=== PATIENT | male | born 1945 | race Caucasian/White ===

== ENCOUNTER 2019-03-31 05:00 | Emergency (ER) | payer MEDICARE, BC ==
[2019-03-31] MEDS ORDERED: Acetaminophen/HYDROcodone 325-10 MG Tab PO ONE ×2 (05:22→14:22)
[2019-03-31 06:37] LABS: ANION GAP 15.5 mmol/L (10-20)
[2019-03-31] MEDS ORDERED: Sodium Chloride 0.9% 10 ML Syringe FLUSH PRN (07:06)
--- NOTE | 2019-03-31 07:18 | EDM.PDOC ---
<AndradeTeo rucker W - Last Filed: 03/31/19 07:29> ED HPI GENERAL MEDICAL PROBLEM - General Chief Complaint: Lower Extremity Injury/Pain Stated Complaint: Right hip pain Time Seen by Provider: 03/31/19 05:15 Source of Information: Reports: Patient History Limitations: Reports: No Limitations - History of Present Illness INITIAL COMMENTS - FREE TEXT/NARRATIVE: Pt. presents to ER with complaints of R hip pain. He states that he has been experiencing this for several weeks. He states that the pain is worse with weight bearing and movement. Denies any significant trauma to the area. He states that he has had "the flu" for the past several days which has included cough and diarrhea. States that he vomited a couple times as well. States that he has been chilled intermittently in the past week. He complains of mild shortness of breath. Denies any chest pain today. No headache. States that he has a couple a dark stools as well. He states that he developed an area of ecchymosis to his R lateral abdomen/hip several days ago. Denies any significant trauma to the area/falls. He states that he is not due for an INR check until next month. Onset: Today Onset Date: 03/31/19 Location: Reports: Abdomen, Lower Extremity, Right Quality: Reports: Throbbing Severity: Moderate Improves with: Reports: Rest Worsens with: Reports: Movement Right hip Pain Score (Numeric/FACES): 2 - Related Data Allergies Allergy/AdvReac Type Severity Reaction Status Date / Time No Known Allergies Allergy Verified 03/31/19 05:25 Home Meds: Home Meds Digoxin 250 mg PO ASDIRECTED 03/31/19 [History] Metoprolol Succinate [Toprol XL 50mg] 50 mg PO DAILY 03/31/19 [History] Warfarin Sodium [Jantoven] 7.5 mg PO DAILY 03/31/19 [History] dilTIAZem HCl [Diltiazem ER] 300 mg PO DAILY 03/31/19 [History] Past Medical History Cardiovascular History: Reports: Afib, Hypertension Review of Systems - Review of Systems Review Of Systems: See Below Constitutional: Reports: Chills. Denies: Diaphoresis Eyes: Reports: No Symptoms Ears: Reports: No Symptoms Nose: Reports: No Symptoms Mouth/Throat: Reports: No Symptoms Respiratory: Reports: Shortness of Breath Cardiovascular: Reports: No Symptoms GI/Abdominal: Reports: Other (See HPI) Genitourinary: Reports: No Symptoms Musculoskeletal: Reports: Joint Pain (R hip pain) Skin: Reports: No Symptoms Neurological: Reports: No Symptoms. Denies: Confusion, Dizziness Psychiatric: Reports: No Symptoms ED EXAM, GENERAL - Physical Exam Exam: See Below Exam Limited By: No Limitations General Appearance: Alert, WD/WN, No Apparent Distress Eye Exam: Bilateral Eye: EOMI, PERRL Throat/Mouth: Normal Inspection, Normal Lips, Normal Teeth, Normal Gums, Normal Oropharynx, Normal Voice, No Airway Compromise Head: Atraumatic, Normocephalic Neck: Normal Inspection, Supple, Non-Tender, Full Range of Motion Respiratory/Chest: No Respiratory Distress, Lungs Clear, Normal Breath Sounds, No Accessory Muscle Use, Chest Non-Tender Cardiovascular: Normal Peripheral Pulses, No Edema, No JVD, Irregularly Irregular Peripheral Pulses: 3+: Radial (L) GI/Abdominal: Normal Bowel Sounds, Soft, Non-Tender, No Organomegaly, Other ( ecchymosis noted to R lateral abdomen. ) (Male) Exam: Deferred Rectal (Males) Exam: Deferred Back Exam: Normal Inspection, Full Range of Motion Extremities: Normal Inspection, Other (R hip pain) Neurological: Alert, Oriented, CN II-XII Intact, Normal Cognition, No Motor/ Sensory Deficits Psychiatric: Normal Affect, Normal Mood Skin Exam: Warm, Dry, No Rash, Pallor Lymphatic: No Adenopathy Course - Vital Signs Last Recorded V/S: Last Vital Signs Temp 36.7 C 03/31/19 08:20 Pulse 88 03/31/19 08:20 Resp 20 03/31/19 08:20 BP 113/61 03/31/19 08:20 Pulse Ox 94 L 03/31/19 08:20 - Orders/Labs/Meds Orders: Active Orders 24 hr Category Date Time Status Fecal Occult Bld Diag Imm [RC] ASDIRECTED Care 03/31/19 07:09 Active CULTURE BLOOD [BC] Stat Lab 03/31/19 07:35 Received CULTURE BLOOD [BC] Stat Lab 03/31/19 07:43 Received UA W/MICROSCOPIC [URIN] Stat Lab 03/31/19 07:07 Ordered Sodium Chloride 0.9% [Saline Flush] Med 03/31/19 07:06 Active 10 ml FLUSH ASDIRECTED PRN Blood Culture x2 Reflex Set [OM.PC] Stat Oth 03/31/19 07:26 Ordered Peripheral IV Insertion Adult [OM.PC] Routine Ot 03/31/19 07:07 Ordered Medication Orders Sodium Chloride (Saline Flush) 10 ml FLUSH ASDIRECTED PRN PRN Reason: Keep Vein Open Labs: Laboratory Tests 03/31/19 03/31/19 03/31/19 Range/Units 05:50 05:50 05:50 WBC (4.0-10.0) x10^3/uL RBC (4.5-6.0) x10^6/uL Hgb (14.0-18.0) g/dL Hct (40.0-52.0) % MCV (78.0-93.0) fL MCH (26.0-32.0) pg MCHC (32.0-36.0) g/dL RDW Coeff of Kimi (10.0-15.0) % Plt Count (130-400) x10^3/uL Add Manual Diff Neutrophils % (Manual) (50-80) % Band Neutrophils % (0-6) % Lymphocytes % (Manual) (25-50) % Monocytes % (Manual) (2-11) % Eosinophils % (Manual) (0-4) % Basophils % (Manual) (0-1) % Metamyelocytes % (0) % Blast Cells % (0) % Platelet Estimate Hypochromasia PT (10.0-12.8) SEC INR (2.0-3.5) Sodium (136-145) mmol/L Potassium (3.5-5.1) mmol/L Chloride (98-107) mmol/L Carbon Dioxide (21-32) mmol/L Anion Gap (10-20) mmol/L BUN (7-18) mg/dL Creatinine (0.70-1.30) mg/dL Est Cr Clr Drug Dosing mL/min Estimated GFR (MDRD) Glucose (74-106) mg/dL Lactic Acid 1.5 (0.4-2.0) mmol/L Calcium (8.5-10.1) mg/dL Corrected Calcium (8.5-10.1) mg/dL Phosphorus 3.2 (2.6-4.7) mg/dL Magnesium 2.1 (1.8-2.4) mg/dL Total Bilirubin (0.2-1.0) mg/dL AST (15-37) U/L ALT (16-63) U/L Alkaline Phosphatase (46-116) U/L Troponin I < 0.017 (<=0.056) ng/mL C-Reactive Protein 17.4 H (<=0.9) mg/dL NT-Pro-B Natriuret Pep 2963 H (<=125) pg/mL Total Protein (6.4-8.2) g/dL Albumin (3.4-5.0) g/dL Globulin Albumin/Globulin Ratio Digoxin 0.87 L (0.90-2.00) ng/mL 03/31/19 03/31/19 03/31/19 Range/Units 05:54 05:54 05:54 WBC 16.7 H (4.0-10.0) x10^3/uL RBC 2.95 L (4.5-6.0) x10^6/uL Hgb 8.7 L (14.0-18.0) g/dL Hct 28.0 L (40.0-52.0) % MCV 94.9 H (78.0-93.0) fL MCH 29.5 (26.0-32.0) pg MCHC 31.1 L (32.0-36.0) g/dL RDW Coeff of Kimi 15.3 H (10.0-15.0) % Plt Count 503 H (130-400) x10^3/uL Add Manual Diff Yes Neutrophils % (Manual) 82 H (50-80) % Band Neutrophils % 1 (0-6) % Lymphocytes % (Manual) 8 L (25-50) % Monocytes % (Manual) 2 (2-11) % Eosinophils % (Manual) 3 (0-4) % Basophils % (Manual) 1 (0-1) % Metamyelocytes % 2 H (0) % Blast Cells % 1 H (0) % Platelet Estimate Marked inc H Hypochromasia 2+ moderate H PT 43.9 H (10.0-12.8) SEC INR 3.9 H (2.0-3.5) Sodium 139 (136-145) mmol/L Potassium 4.5 (3.5-5.1) mmol/L Chloride 103 (98-107) mmol/L Carbon Dioxide 25 (21-32) mmol/L Anion Gap 15.5 (10-20) mmol/L BUN 41 H (7-18) mg/dL Creatinine 2.3 H (0.70-1.30) mg/dL Est Cr Clr Drug Dosing 30.93 mL/min Estimated GFR (MDRD) 28 Glucose 174 H (74-106) mg/dL Lactic Acid (0.4-2.0) mmol/L Calcium 8.1 L (8.5-10.1) mg/dL Corrected Calcium 9.38 (8.5-10.1) mg/dL Phosphorus (2.6-4.7) mg/dL Magnesium (1.8-2.4) mg/dL Total Bilirubin 1.5 H (0.2-1.0) mg/dL AST 42 H (15-37) U/L ALT 55 (16-63) U/L Alkaline Phosphatase 104 (46-116) U/L Troponin I (<=0.056) ng/mL C-Reactive Protein (<=0.9) mg/dL NT-Pro-B Natriuret Pep (<=125) pg/mL Total Protein 7.6 (6.4-8.2) g/dL Albumin 2.4 L (3.4-5.0) g/dL Globulin 5.2 Albumin/Globulin Ratio 0.46 Digoxin (0.90-2.00) ng/mL Meds: Medications Generic Name Dose Route Start Last Admin Trade Name Freq PRN Reason Stop Dose Admin Sodium Chloride 10 ml 03/31/19 07:06 Saline Flush FLUSH ASDIRECTED PRN Keep Vein Open Discontinued Medications Generic Name Dose Route Start Last Admin Trade Name Freq PRN Reason Stop Dose Admin Hydrocodone Bitart/Acetaminophen 1 tab 03/31/19 05:22 03/31/19 05:43 [place] 325-10 Mg PO 03/31/19 05:23 1 tab ONETIME ONE Administration Departure - Departure Disposition: DC/Tfer to [facility] Clinical Impression: Hip pain, right - Discharge Information Referrals: PCP,Unobtain [Ordering Only Provider] - Forms: ED Department Discharge, Interfacility Transfer EMTALA <Nnamdi Gutierrez P - Last Filed: 03/31/19 10:26> Course - Re-Assessments/Exams Free Text/Narrative Re-Assessment/Exam: 03/31/19 09:29 CT chest abd pelvis impression 1 large right retroperitoneal hemorrhage 2 bladder stones near right UVJ right sided hydronephrosis Departure - Departure Time of Disposition: 09:00 Condition: Good - Problem List & Annotations (1) Retroperitoneal bleeding SNOMED Code(s): 58024348 Code(s): R58 - HEMORRHAGE, NOT ELSEWHERE CLASSIFIED Status: Acute Current Visit: Yes (2) MELO (acute kidney injury) SNOMED Code(s): 90827203, 47444232 Code(s): N17.9 - ACUTE KIDNEY FAILURE, UNSPECIFIED Status: Acute Current Visit: Yes (3) Anemia SNOMED Code(s): 524494059 Code(s): D64.9 - ANEMIA, UNSPECIFIED Status: Acute Current Visit: Yes (4) Elevated INR SNOMED Code(s): 327173773 Code(s): R79.1 - ABNORMAL COAGULATION PROFILE Status: Acute Current Visit : Yes (5) Hip pain, right SNOMED Code(s): 17622744 Code(s): M25.551 - PAIN IN RIGHT HIP Status: Acute Current Visit: Yes - Assessment/Plan Admission H&P: Please use this note as an admission H&P Assessment:: 1 large right retroperitoneal hematoma 2 bladder stones near right UVJ right sided hydronephrosis 3 MELO 4 elevated INR 5 right hip pain Plan: [id number] spoke with Cayla Verdugo pcp says pt needs transferred to higher level care spoke with DR Monterroso at [facility] will accept transfer of pt to [facility] pt in stable contition al [facility] will transport via EMS
--- NOTE | 2019-03-31 08:49 | CR ---
[id number] RAD/RAD Chest PA And Lateral EXAM: RAD Chest PA And Lateral CLINICAL DATA: ELEVATED WHITE BLOOD CELL COUNT. COUGH COMPARISON: CORRELATION IS MADE WITH THE EXAM OF JANUARY 08, 2009. FINDINGS: The lungs are clear. The cardiomediastinal contour is enlarged but stable. The regional bones and soft tissues are unremarkable. IMPRESSION: NO ACUTE PROCESS. Eddi Rey MD 03/31/19 0846 Thank you for allowing us to participate in the care of your patient.
--- NOTE | 2019-03-31 08:50 | CR ---
[id number] RAD/RAD Pelvis 1V W 2V Right Hip Exam: RAD Pelvis 1V W 2V Right Hip Clinical Data: TRAUMA COMPARISON: NO PREVIOUS SIMILAR EXAM IS AVAILABLE FINDINGS: Degenerative changes are seen. There is no fracture or dislocation identified. IMPRESSION: NO FRACTURE OR DISLOCATION SEEN. Eddi Rey MD 03/31/19 0847 Thank you for allowing us to participate in the care of your patient.
--- NOTE | 2019-03-31 08:59 | CT ---
[id number] CT/CT Chest Abdomen Pelvis WO IV Exam: CT Chest Abdomen Pelvis WO IV Clinical Data: DROP IN HEMOGLOBIN. ABNORMALLY ELEVATED INR. COMPARISON: NO PREVIOUS SIMILAR EXAM IS AVAILABLE FINDINGS: There is a large right-sided retroperitoneal hemorrhage. Report provided at the time of the exam. There is evidence of bladder calculi. There are some limitations of the exam without IV contrast. There is evidence of right-sided nephrolithiasis. The liver and spleen, adrenals, aorta, and pancreas show no acute abnormalities. The gallbladder is not distended. The pelvis shows no mass or adenopathy otherwise. The appendix is not seen. There are small bilateral renal cysts. There is narrowing of the right UPJ. There is mild right-sided hydronephrosis. IMPRESSION: LARGE RIGHT-SIDED RETROPERITONEAL HEMORRHAGE. Eddi Rey MD 03/31/19 0856 Thank you for allowing us to participate in the care of your patient.
[2019-03-31] MEDS: Acetaminophen/HYDROcodone 325-10 MG Tab PO ONE (10:41)
== END 2019-03-31 14:32 | disposition short-term general hospital (02) ==
LOC: VM.ED 05:00
DX: N17.9 Acute kidney failure, unspecified (principal); N13.2 Hydronephrosis with renal and ureteral calculous obstruction; R79.89 Other specified abnormal findings of blood chemistry; K66.1 Hemoperitoneum; Z79.899 Other long term (current) drug therapy
CPT/HCPCS: 36415; 71046; 71250; 74176; 80053; 80162; 83605; 83735; 83880; 84100; 84484; 85025; 85610; 86140; 87040; 99284-25; 99285-GF; A9270-GY